=== PATIENT | female | born 2000 | race Two or more races ===

== ENCOUNTER → 2023-09-17 | Outpatient (CLI) | payer OTHER ==
[~2023-09-17] MED LIST: AMOX875T2 PO
== END ==
LOC: M PLALAB 12:22
PROVIDERS: ATTEND Family Medicine
DX: M70.61 Trochanteric bursitis, right hip (principal)

== ENCOUNTER → 2023-09-17 | Outpatient (CLI) | payer OTHER | LOC: M WHC 13:27 | PROVIDERS: ATTEND Family Medicine | DX: N64.4 Mastodynia (principal); Z98.82 Breast implant status; M70.61 Trochanteric bursitis, right hip ==

== ENCOUNTER → 2024-05-21 | Outpatient (CLI) | payer OTHER ==
[2024-05-21 12:50] LABS: FREE T4 1.18 NG/DL (0.89-1.76); THYROGLOBULIN ANTIBODY < 15.0 U/ML (<60.0); THYROID PEROXIDASE ANTIBODY 33 U/ML (<60.0)
[2024-05-21 12:51] LABS: THYROID STIMULATING HORMONE 1.704 uIU/ML (0.55-4.78)
== END ==
LOC: M PLALAB 09:18
PROVIDERS: ATTEND Family Medicine
DX: E04.9 Nontoxic goiter, unspecified (principal)

== ENCOUNTER → 2024-07-09 | Outpatient (CLI) | payer OTHER | LOC: M RAD 11:37 | PROVIDERS: ATTEND Family Medicine | DX: E04.9 Nontoxic goiter, unspecified (principal) ==

== ENCOUNTER → 2024-07-24 | Outpatient (CLI) | payer OTHER ==
[2024-07-24 13:17] LABS: PERCENT SATURATION 25.3 % (13.2-45.0)
[2024-07-24 13:22] LABS: FERRITIN 52.5 NG/ML (7.3-270.7); THYROID STIMULATING HORMONE 1.217 uIU/ML (0.55-4.78)
[2024-07-24 13:23] LABS: FREE T4 1.29 NG/DL (0.89-1.76)
== END ==
LOC: M PLALAB 11:17
PROVIDERS: ATTEND Family Medicine
DX: R53.83 Other fatigue (principal)

== ENCOUNTER → 2024-08-19 | Outpatient (CLI) | payer OTHER ==
[~2024-08-19] MED LIST changes: +E-Z-GAS II EFFERVESCENT PACKET (SODIUM BICARB./CITRIC ACID/SIMETHICONE) As Ordered ONE; +E-Z-HD 98% w/w 340GM SUSP BTL As Ordered ONE; +E-Z-PAQUE 96% w/w SUSP 176GM BTL As Ordered ONE
== END ==
LOC: M RAD 08:57
PROVIDERS: ATTEND Otolaryngology
DX: F45.8 Other somatoform disorders (principal)

== ENCOUNTER → 2025-04-07 | Outpatient (CLI) | payer OTHER ==
[~2025-04-07] MED LIST changes: -E-Z-GAS II EFFERVESCENT PACKET (SODIUM BICARB./CITRIC ACID/SIMETHICONE) As Ordered ONE; -E-Z-HD 98% w/w 340GM SUSP BTL As Ordered ONE; -E-Z-PAQUE 96% w/w SUSP 176GM BTL As Ordered ONE
[2025-04-07 18:51] LABS: FREE T4 1.22 NG/DL (0.89-1.76)
[2025-04-07 18:52] LABS: VITAMIN B12 LEVEL 1005.0 PG/ML (211-911)
[2025-04-07 18:54] LABS: IRON (FE) 72.0 UG/DL (50-170); PERCENT SATURATION 26.1 % (13.2-45.0)
== END ==
LOC: M PLALAB 16:52
PROVIDERS: ATTEND Family Medicine
DX: E04.9 Nontoxic goiter, unspecified (principal); R53.83 Other fatigue